=== PATIENT | female | born 1940 | race Caucasian/White ===

== ENCOUNTER 2016-11-02 11:29 | Inpatient (IN) | payer OTHER ==
[~2016-11-02] VITALS: Ht 162.6 cm; Wt 64.6 kg
[~2016-11-02 11:29] MED LIST: ADVAIR DISKUS 51 AER; ALPHAGAN P5 M1 OP; APLENZIN174 MG PO; ASPIRIN EC325 M1 PO; ASTAGRAF XL0.5 MG PO; ATI2I IV; ATROVENT H0.017 MG/1; ATRUD HHN; AUG500 PO; AZITHROMYCIN250 M1 PO; BACTRIM DS1 TAB PO; BACTRIM1 TAB PO; BG MC; CALCIUM; CALCIUM 600-D1 TAB PO; CALCIUM 600/VIT1 CA1 PO; CALCIUM 600600 M3 PO; CEFTIN500 MG PO; CEL20 PO; CEL250 PO; CELLCEPT250 MG PO; CENTURY PO; CLARITIN10 MG PO; COL100 PO; CRESEMBA186 MG PO; DELESTROGEN20 MG/ML IM; DESYREL50 MG PO; DEXPF IV; DORZOLAMIDE HYD10 ML OP; DUONEB3 ML NEB; ECO81 PO; ENFAMIL D-V400 IU/ML PO; ERGOCALCIFER50000 IU PO; FERROUS SULFAT325 M2 PO; FLA500 PO; FOLIC ACID1 MG PO; FUROSEMIDE20 MG PO; GABAPENTIN600 M1 PO; GOOD SENSE ASP325 MG PO; GOOD SENSE ASPI81 M3 PO; HALDOL; HALDOL DECA100 MG/ML PO; HALDOL DECAN50 MG/ML PO; HALOPERIDOL2 MG PO; HALOPERIDOL5 MG PO; HECORIA1 M1 PO; HEP5I SC; HYDROMORPHONE1 MG/ML IV; IPRATROPIUM BROM3 M2 HHN; K DUR; LAC PO; LANTUS SOLOS100 U/M1 SQ; LATANOPROST2.5 ML OU; LEVOFLOXACIN500 M1 PO; LOPRESSOR50 MG PO; MAC100 PO; MAGNESIUM; MAGNESIUM OXID400 MG PO; MAGNESIUM/PROTEIN PO; METHOCARBAMOL500 MG PO; METOPROLOL TART25 M1 PO; MG PLUS PROTEI133 MG PO; MIRALAX17 GM/Dose PO; MULTIVITAMIN1 SGL; MULTIVITAMIN1 SGL PO; NEURONTIN400 MG PO; NEURONTIN600 MG PO; NOR10T PO; NORCO1 TA1 PO; NOVI; NOVI SQ; NOVOLOG100 U/ML SC; NYSTATIN100000 U/M PO; OSCAL ULTRA 6001 TA1 PO; OSCD PO; OXYBUTYNIN CHLOR5 MG PO; OXYCODONE HYDROC5 M2 PO; OXYCONTIN20 MG PO; PHE25 PO; PRE20 PO; PRED FORTE1 ML OP; PREDNISONE1 MG PO; PREDNISONE2.5 MG PO; PREDNISONE20 MG PO; PRELONE15 MG/5 ML PO; PRI20 PO; PRILOSEC20 MG PO; PROAIR HFA0.09 MG/A1 INH; PROGRAF0.5 MG PO; PROGRAF1 MG PO; PROTONIX40 MG PO; PYR100 PO; QUALAQUIN324 MG PO; QUININE SULFAT324 MG PO; RESTORIL30 MG PO; ROC1I IM; STROVITE ONE1 TAB PO; TEMAZEPAM30 MG PO; THERAGRAN-M1 TA4 PO; TRA50 PO; TRAMADOL HCL50 MG PO; TRAVATAN Z5 ML OP; TRAZODONE50 M1 PO; TRIMETHOPRIM; TYL325 PO; VALCYTE450 MG PO; VFEND200 MG PO; VFEND50 MG PO; VITAMIN C500 M4 PO; VITAMIN C500 MG PO; VORICONAZOLE50 MG PO; ZES5 PO; ZITHROMAX250 MG PO; ZOC20 PO; ZOF4 PO; ZOS3PM IV; [UNRECOGNIZED DRUG - CODE] OP; [UNRECOGNIZED DRUG - CODE] PO; [UNRECOGNIZED DRUG - CODE] PO; [UNRECOGNIZED DRUG - OTHER]; [UNRECOGNIZED DRUG - OTHER] PO
--- NOTE | 2016-11-02 11:47 | NUR ---
DR TENA AT BEDSIDE FOR MSE
--- NOTE | 2016-11-02 11:57 | NUR ---
NORA AT BEDSIDE FOR BLOOD DRAW
--- NOTE | 2016-11-02 12:06 | NUR ---
PT MEDICATED WITH ZOFRAN 4MG SLOW IV PUSH AND PEPCID SLOW IV PUSH PER MD ORDERS. PT AND EDUCATED ON MEDICATION PRIOR TO ADMINISTRATION AND VERBALIZED UNDERSTANDING. PT REMAINS ON CUPOLA MELTING SUPERVISOR WITH CALL LIGHT IN REACH AND AT BEDSIDE.
--- NOTE | 2016-11-02 12:11 | NUR ---
X-RAY AT BEDSIDE
[2016-11-02 12:12] LABS: PLATELET COUNT 225 x10^3mcL (130-400); RED CELL DISTRIBUTION WIDTH 13.6 % (11.5-14.5)
[2016-11-02 12:13] LABS: BASOPHIL % 2.3 % (0-2)
--- NOTE | 2016-11-02 12:18 | NUR ---
PT HAS NORMAL SALINE INFUSING WIDE OPEN PER MD ORDERS. DUE TO PTS LOW BP. PT AND EDUCATED ON INFUSION AND VERBALIZED UNDERSTANDING. PT REMAINS ON COMPRESSOR ASSEMBLER WITH CALL LIGHT IN REACH.
[2016-11-02 12:26] LABS: CALCIUM 8.8 mg/dL (8.5-10.1); CARBON DIOXIDE 26.6 mmol/L (21-32); CHLORIDE SERUM 103 mmol/L (98-107); CREATININE SERUM 1.1 mg/dL (0.6-1.0); GLUCOSE SERUM 115 mg/dL (74-106); POTASSIUM SERUM 4.6 mmol/L (3.5-5.1); SODIUM SERUM 138 mmol/L (136-145)
[2016-11-02 12:30] LABS: ALBUMIN 2.8 g/dL (3.4-5.0); ALKALINE PHOSPHATASE 50 U/L (46-116); ALT/SGPT 23 U/L (14-59); AMYLASE 64 U/L (25-115); AST/SGOT 19 U/L (15-37); LIPASE 66 IU/L (73-393); TOTAL PROTEIN, SERUM 5.9 g/dL (6.4-8.2)
--- NOTE | 2016-11-02 12:30 | NUR ---
PT MEDICATED WITH FENTANYL 75MCG SLOW IV PUSH PER MD ORDERS. PT AND EDUCATED ON MEDICATION PRIOR TO ADMINISTRATION AND VERBALIZED UNDERSTANDING. PT REMAINS ON SALVAGE MECHANIC WITH CALL LIGHT IN REACH AND AT BEDSIDE.
--- NOTE | 2016-11-02 12:43 | NUR ---
PT RESTING ON GURNEY IN A POSITION OF COMFORT. PT REPORTS HER PAIN IS NOW A 0/10 AFTER BEING MEDICATED. PT REMAINS ON TIMBER GRADER WITH CALL LIGHT IN REACH AND AT BEDSIDE.
--- NOTE | 2016-11-02 14:09 | NUR ---
PT HAS ZOSYN INFUSING AT 100ML/HR PER MD ORDERS. PT EDUCATED ON MEDICATION PRIOR TO ADMINISTRATION AND VERBALIZED UNDERSTANDING. PT REMAINS ON EQUIPMENT MANAGER WITH CALL LIGHT IN REACH
[2016-11-02 14:10] LABS: microscopic required? NO
[2016-11-02 14:23] LABS: CHOLESTEROL/HDL RATIO 4.4
[2016-11-02 14:24] LABS: MAGNESIUM 1.8 mg/dL (1.8-2.4); PHOSPHOROUS 4.2 mg/dL (2.5-4.9)
--- NOTE | 2016-11-02 14:29 | NUR ---
REPORT GIVEN TO MEGA GREY TO ASSUME CARE OF PT.
[2016-11-02 14:30] LABS: T3 TOTAL 1.01 ng/mL
[2016-11-02 14:34] LABS: FREE THYROXINE INDEX 2.8 ug/dL (1.4-4.5); T4(THYROXINE) 7.7 ug/dL (4.7-13.3)
[2016-11-02 15:04] VITALS: BP 125/57
[2016-11-02 15:21] LABS: urine erythrocyte NEGATIVE (NEGATIVE)
--- NOTE | 2016-11-02 15:30 | NUR ---
PT ARRIVED HERE ON UNIT. ORIENT TO ROOM AND CALL SYSTEM. AT SIDE. AWAKD AND ALERT. TELE #15 SINUS RHYTHM. DENIES CHEST DISCOMFORT. RESP 18 EVEN. OXYGEN 2L NC IN PLACE. ABD SOFT. LUNCH MEAL SERVED ASSISTED WITH MEAL BY . IV PATENT LEFT HAND INFUSING NORMAL SALINE 50CC/HR. SCHEDULED FOR CT SCAN WITH IV/ORAL CONTRAST. HINDUISM RN ABLE TO INSERT #20 ANGIO CATH RFA SALINE LOCK FOR EXAM. PT TOLERATED WELL. DR GIANG IN TO SPEAK WITH PT AND . SCD IN ROOM.
--- NOTE | 2016-11-02 15:35 | NUR ---
RECEIVED PATIENT FROM ED VIA GUERNEY, PATIENT IN NO ACUTE DISTRESS, C/O PAIN TO ABD WILL MEDICATE ORDERED, NO SOB NOTED AT THIS TIME, ALERT AND ORIENTED AT BEDSIDE, ORIENTED PATIENT TO ROOM AND SURROUNDINGS, BED IN LOW POSITION, BED RAILS UP X 2, CALL LIGHT WITHIN REACH, WILL ENDORSE CARE TO MEGA GREY
--- NOTE | 2016-11-02 15:45 | NUR ---
PT C/O DISCOMFORT. MED BY GANGA GREY WITH MORPHINE SULFATE 2MG IVP ORDERED.
[2016-11-02 16:00] VITALS: BP 125/57
--- NOTE | 2016-11-02 16:00 | NUR ---
PT RESTING, EASILY AROUSED. REPORTS "I HAVE NO PAIN RIGHT NOW." REPORTS "HER SKIN IS VERY FRAGILE FROM ALL THE STERIODS SHE HAS BEEN ON. SKIN TEARS VERY EASILY." NOTED UPPER EXTREMITIES WITH DISCOLORATION BENEATH SKIN. PAPER TAPE USED REQUESTED.
[2016-11-02 16:01] LABS: AMPHETAMINE QUAL UR NONE DETECTED (NEG <=1000)
--- NOTE | 2016-11-02 17:00 | NUR ---
YOC=[id number]. NO RISS COVERAGE. NPO AT THIS TIME FOR CT ABD. CT CALLED. WILL GIVE PREP AT 1900 AND SCAN AT 2200. PT AND MADE AWARE. WILL CONTINUE TO MONITOR. PT DENIES PAIN AT THIS TIME.
[2016-11-02 17:46] VITALS: BP 94/54
--- NOTE | 2016-11-02 20:14 | NUR ---
Awake and verbally responsive. No resp.distress on 02 3lpm via n/c. Diminished breath sounds bilaterally. HOB elevated [address] abdomen. Taking oral contrast at this time. Normal sinus rhythm. at the bedside. Will cont. to monitor. Call light within reach.
[2016-11-02 21:00] VITALS: BP 115/55
[2016-11-02 21:52] VITALS: BP 105/62
--- NOTE | 2016-11-03 04:11 | NUR ---
Afebrile. No significant change in condition noted. Denies n/v. Medicated with morphine as ordered for c/o abd'l. pain with relief. No cough or congestion noted. Turned and repositioned q2h. Cont.on IV zosyn.
[2016-11-03 05:32] VITALS: BP 118/52
[2016-11-03 06:58] LABS: BASOPHIL % 0.2 % (0-2); PLATELET COUNT 280 x10^3mcL (130-400); RED CELL DISTRIBUTION WIDTH 14.3 % (11.5-14.5)
--- NOTE | 2016-11-03 07:50 | NUR ---
RECEIVED PT IN BED.ASSESSED AND DOCUMENTED. DENIES PAIN THIS TIME. SAFTEY PRECAUTIONS ON. WILL MONITOR.
[2016-11-03 08:09] LABS: CALCIUM 8.5 mg/dL (8.5-10.1); CARBON DIOXIDE 27.9 mmol/L (21-32); CHLORIDE SERUM 106 mmol/L (98-107); CREATININE SERUM 1.1 mg/dL (0.6-1.0); GLUCOSE SERUM 97 mg/dL (74-106); POTASSIUM SERUM 4.5 mmol/L (3.5-5.1); SODIUM SERUM 142 mmol/L (136-145)
--- NOTE | 2016-11-03 09:00 | NUR ---
PT RESTING IN BED COMFORTABLY. HAD LARGE SOFT BM. DENIES PAIN THIS TIME.
[2016-11-03] MEDS ORDERED: NOR10T PO (09:37)
[2016-11-03] MEDS ORDERED: COL100 PO (09:38)
[2016-11-03] MEDS ORDERED: LAC PO (09:38)
[2016-11-03] MEDS ORDERED: AUG500 PO (09:39)
[2016-11-03 10:21] VITALS: BP 134/68
[2016-11-03 14:45] VITALS: BP 150/73
[2016-11-03 17:05] VITALS: BP 113/68
--- NOTE | 2016-11-03 19:00 | NUR ---
PT RESTING IN BED COMFORTABLY. DENIES PAIN THIS TIME. GAVE REPORT TO NEXT SHIFT NURSE.
[2016-11-03 21:09] VITALS: BP 120/56
--- NOTE | 2016-11-03 22:26 | NUR ---
Awake and verbally responsive. No resp.distress noted. No cough or congestion noted. HOB kept elevated 30 degrees. Medicated as ordered for c/o back pain, morphine 2mg IV given with relief. Normal sinus rhythm. Will cont.to monitor. CAll light within reach. Refused SCD at this time.
--- NOTE | 2016-11-04 04:25 | NUR ---
Afebrile. Resting comfortably in bed. No SOB noted. No significant change in condition noted. Weight shift assistance provided. Incontinent, good pericare rendered. Cont.on IV zosyn. No cough or congestion noted. No cues of pain at this time. Safety mantained.
[2016-11-04 06:20] VITALS: BP 150/93
[2016-11-04 06:27] LABS: BASOPHIL % 0.3 % (0-2); PLATELET COUNT 189 x10^3mcL (130-400); RED CELL DISTRIBUTION WIDTH 13.5 % (11.5-14.5)
[2016-11-04 06:33] LABS: CALCIUM 8.9 mg/dL (8.5-10.1); CHLORIDE SERUM 107 mmol/L (98-107); POTASSIUM SERUM 4.2 mmol/L (3.5-5.1); SODIUM SERUM 141 mmol/L (136-145)
[2016-11-04 06:55] LABS: GLUCOSE SERUM 54 mg/dL (74-106)
--- NOTE | 2016-11-04 08:00 | NUR ---
AWAKE AND ALERT TO PERSON AND AND PLACE, FORGETFUL TO DATE AND TIME. REORIENTED. SPEECH CLEAR. TEMP 98.3. TELE #15 SINUS RHYTHM RATE 81. RESP 18 EVEN. BREATH SOUNDS DIMINISHED. NO COUGH OR SOB. PULSE OX 96% RA. ABD SOFT, BOWEL TONES PRESENT. EPISODE OF LOOSE STOOL THIS AM. PERICARE PROVIDED. SKIN INTEGRITY INTACT. NO SKIN BREAKDOWN NOTED. SKIN FRAGILE WITH PURPLISH COLOR UNDERTONES TO ARMS AND UPPER TORSO. REPORTS "IT IS FROM YEARS OF PREDNISONE USE." VOIDING QS. NO EDEMA. PULSES PRESENT. SCD IN PLACE. IV PATENT LEFT HAND INFUSING NORMAL SALINE 50CC/HR. SIDE RAILS UP X2. CALL LIGHT IN REACH.
--- NOTE | 2016-11-04 09:00 | NUR ---
DR JUAREZ AND MEDICAL TEAM IN ON ROUNDS. DISCUSSED PLAN OF CARE. FOR DISCHARGE HOME TODAY. PT VERBALIZED UNDERSTANDING.
[2016-11-04 11:01] VITALS: BP 111/63
[2016-11-04] MEDS ORDERED: PHARMASSURE FO0.4 MG (11:51)
[2016-11-04] MEDS ORDERED: PHARMASSURE VI500 MG (11:53)
[2016-11-04 11:54] VITALS: BP 140/81
--- NOTE | 2016-11-04 12:59 | NUR ---
ECHO IN PROGRESS. PT C/O GENERALIZED BODY ACHES HAI MID EPIGASTRIC REGION "01/26." PAGE TO DR CARR. TO ORDER TORADOL FOR PT.
--- NOTE | 2016-11-04 13:08 | NUR ---
PT C/O GENERALIZED BODY ACHES AND STOMACH PAIN. PT ANXIOUS, TEARFUL. DR CARR ORDERED TORADOL. REVIEWED MED WITH PT AND . VERBALIZED UNDERSTANDING. MED WITH TORADOL 15MG IVP ORDERED. CALL LIGHT IN REACH. REPOSITION FOR LUNCH MEAL AFTER ECHO COMPLETED.
--- NOTE | 2016-11-04 13:40 | NUR ---
PT REPORTS "FEELING BETTER 07/29." SMILING AND CHEERFUL.
[2016-11-04] MEDS ORDERED: PROTONIX40 MG PO (13:49)
[2016-11-04] MEDS ORDERED: IPRATROPIUM BROM3 M2 HHN (13:50)
[2016-11-04 14:04] VITALS: BP 152/69
--- NOTE | 2016-11-04 14:45 | NUR ---
REVIEWED DISCHARGE INSTRUCTIONS WITH PT AND . MEDS REVIEWED. VERBALIZED UNDERSTANDING OF MEDS, SCHEDULE AND ACTIONS. TO FOLLOWUP WITH DR CARABALLO NEXT WEEK. IV REMOVED CATH TIP INTACT. TELE REMOVED AND RETURNED TO TELE UNIT. PT ABLE TO GET UP TO BATHROOM WITH ASSIST, GAIT SLOW. HAD BM LOOSE AND VOIDED AT THIS TIME. PERICARE PROVIDED. ASSIST TO WHEELCHAIR. DC WITH BELONGINGS TO DISCHARGE NURSE OFFICE AT THIS TIME. NO GLASSES FOUND. BELONGINGS LIST ON ADMISSION STATES NO GLASSES. REPORTS "BROUGHT IN GLASSES 11-03-16. LAST SEEN LAST NIGHT BY BEFORE HE LEFT."
== END 2016-11-04 14:45 | disposition home or self-care (01) | DRG 177 ==
LOC: ED 11:29 → DU 13:33
PROVIDERS: Emergency Medicine; Family Medicine; ADMIT Family Medicine
DX: J69.0 Pneumonitis due to inhalation of food and vomit (principal); E43 Unspecified severe protein-calorie malnutrition; Z94.2 Lung transplant status; J44.1 Chronic obstructive pulmonary disease with (acute) exacerbation; E11.51 Type 2 diabetes mellitus with diabetic peripheral angiopathy without gangrene; E11.42 Type 2 diabetes mellitus with diabetic polyneuropathy; R10.13 Epigastric pain; R11.2 Nausea with vomiting, unspecified; M47.897 Other spondylosis, lumbosacral region; N32.81 Overactive bladder; G47.00 Insomnia, unspecified; I71.4 Abdominal aortic aneurysm, without rupture; E78.5 Hyperlipidemia, unspecified; F41.8 Other specified anxiety disorders; F10.21 Alcohol dependence, in remission; Z79.899 Other long term (current) drug therapy; Z87.891 Personal history of nicotine dependence; Z85.820 Personal history of malignant melanoma of skin; Z85.110 Personal history of malignant carcinoid tumor of bronchus and lung; Z86.718 Personal history of other venous thrombosis and embolism; Z95.828 Presence of other vascular implants and grafts; Z68.24 Body mass index [BMI] 24.0-24.9, adult
CPT/HCPCS: 80307; 83880; 84439; 94150; G0480; J1815; J1885; J2270; J2405; J2543; J3010; J3490; J7030; J7507; J7512; J7517; J7620; Q0092; Q9966; Q9967

== ENCOUNTER 2016-11-07 19:23 | Observation (INO) | payer OTHER ==
[~2016-11-07] VITALS: Ht 162.6 cm; Wt 54.5 kg
[~2016-11-07 19:23] MED LIST changes: +PHARMASSURE FO0.4 MG; +PHARMASSURE VI500 MG
[2016-11-07 20:33] LABS: BASOPHIL % 0.4 % (0-2); PLATELET COUNT 199 x10^3mcL (130-400); RED CELL DISTRIBUTION WIDTH 13.5 % (11.5-14.5)
[2016-11-07 20:58] LABS: CALCIUM 9.9 mg/dL (8.5-10.1); CARBON DIOXIDE 22.4 mmol/L (21-32); CHLORIDE SERUM 100 mmol/L (98-107); CREATININE SERUM 1.5 mg/dL (0.6-1.0); GLUCOSE SERUM 108 mg/dL (74-106); POTASSIUM SERUM 4.1 mmol/L (3.5-5.1); SODIUM SERUM 138 mmol/L (136-145)
[2016-11-07 21:03] LABS: ALBUMIN 3.6 g/dL (3.4-5.0); ALKALINE PHOSPHATASE 59 U/L (46-116); ALT/SGPT 20 U/L (14-59); AST/SGOT 13 U/L (15-37); BILIRUBIN TOTAL 0.4 mg/dL (0.20-1.00); TOTAL PROTEIN, SERUM 7.1 g/dL (6.4-8.2)
[2016-11-07 21:22] LABS: CK-MB 1.2 ng/mL (0-3.6)
[2016-11-08] VITALS (7 sets, daily range): BP systolic 114–136; BP diastolic 57–79
[2016-11-08 01:28] LABS: T3 TOTAL 1.15 ng/mL
[2016-11-08 01:35] LABS: MAGNESIUM 1.6 mg/dL (1.8-2.4); PHOSPHOROUS 2.8 mg/dL (2.5-4.9)
[2016-11-08 01:36] LABS: CHOLESTEROL/HDL RATIO 5.3
[2016-11-08 01:42] LABS: FREE T4 1.06 ng/dL (0.76-1.46); FREE THYROXINE INDEX 2.5 ug/dL (1.4-4.5); T4(THYROXINE) 7.6 ug/dL (4.7-13.3)
[2016-11-08 08:15] LABS: BASOPHIL % 0.1 % (0-2); PLATELET COUNT 158 x10^3mcL (130-400); RED CELL DISTRIBUTION WIDTH 13.8 % (11.5-14.5)
[2016-11-08 08:48] LABS: CALCIUM 9.3 mg/dL (8.5-10.1); CARBON DIOXIDE 16.8 mmol/L (21-32); CHLORIDE SERUM 99 mmol/L (98-107); CREATININE SERUM 1.8 mg/dL (0.6-1.0); GLUCOSE SERUM 279 mg/dL (74-106); POTASSIUM SERUM 4.5 mmol/L (3.5-5.1); SODIUM SERUM 135 mmol/L (136-145)
[2016-11-08 12:23] LABS: microscopic required? NO
[2016-11-08 12:32] LABS: urine erythrocyte NEGATIVE (NEGATIVE)
[2016-11-08 12:49] LABS: AMPHETAMINE QUAL UR NONE DETECTED (NEG <=1000)
[2016-11-08 17:07] LABS: CALCIUM 8.8 mg/dL (8.5-10.1); CARBON DIOXIDE 22.2 mmol/L (21-32); CHLORIDE SERUM 97 mmol/L (98-107); CREATININE SERUM 1.5 mg/dL (0.6-1.0); GLUCOSE SERUM 246 mg/dL (74-106); POTASSIUM SERUM 4.6 mmol/L (3.5-5.1); SODIUM SERUM 133 mmol/L (136-145)
[2016-11-09 05:58] VITALS: BP 140/67
[2016-11-09 06:58] LABS: CARBON DIOXIDE 19.4 mmol/L (21-32); CHLORIDE SERUM 105 mmol/L (98-107); CREATININE SERUM 1.4 mg/dL (0.6-1.0); GLUCOSE SERUM 209 mg/dL (74-106); SODIUM SERUM 138 mmol/L (136-145)
[2016-11-09 06:59] LABS: MAGNESIUM 1.8 mg/dL (1.8-2.4)
[2016-11-09 07:01] LABS: BASOPHIL % 0 % (0-2); PLATELET COUNT 148 x10^3mcL (130-400); RED CELL DISTRIBUTION WIDTH 14.5 % (11.5-14.5)
[2016-11-09 07:06] LABS: ALBUMIN 2.9 g/dL (3.4-5.0)
[2016-11-09 09:31] VITALS: BP 134/72
[2016-11-09] MEDS ORDERED: AUGMENTIN1 TA1 PO (11:38)
[2016-11-09] MEDS ORDERED: LAC PO (11:39)
[2016-11-09 12:19] VITALS: BP 134/72
== END 2016-11-09 13:55 | disposition hospice, home (50) | DRG 190 ==
LOC: ED 19:23 → DU 11-08 00:18 → MU 11-08 00:18 → DU 11-08 00:18 → MU 11-09 06:24
PROVIDERS: Emergency Medicine; Family Medicine; ADMIT Family Medicine
DX: J44.1 Chronic obstructive pulmonary disease with (acute) exacerbation (principal); J69.0 Pneumonitis due to inhalation of food and vomit; E43 Unspecified severe protein-calorie malnutrition; N17.0 Acute kidney failure with tubular necrosis; Z94.2 Lung transplant status; E11.51 Type 2 diabetes mellitus with diabetic peripheral angiopathy without gangrene; E11.42 Type 2 diabetes mellitus with diabetic polyneuropathy; E78.5 Hyperlipidemia, unspecified; I71.4 Abdominal aortic aneurysm, without rupture; G47.00 Insomnia, unspecified; M51.36 Other intervertebral disc degeneration, lumbar region; N32.81 Overactive bladder; F10.21 Alcohol dependence, in remission; F41.9 Anxiety disorder, unspecified; Z85.110 Personal history of malignant carcinoid tumor of bronchus and lung; Z85.820 Personal history of malignant melanoma of skin; Z87.891 Personal history of nicotine dependence; Z86.718 Personal history of other venous thrombosis and embolism; Z95.828 Presence of other vascular implants and grafts; Z68.20 Body mass index [BMI] 20.0-20.9, adult
CPT/HCPCS: 36600; 83880; 84439; 94150; G0378; J1815; J2270; J2543; J2920; J2930; J3010; J3475; J7030; J7507; J7512; J7517; J7613; J7620; J7626; J7633; J7644; Q0092

== ENCOUNTER 2017-02-10 12:00 | Inpatient (IN) | payer OTHER ==
[~2017-02-10] VITALS: Ht 162.6 cm; Wt 59.0 kg
[~2017-02-10 12:00] MED LIST changes: +AUGMENTIN1 TA1 PO
--- NOTE | 2017-02-10 13:44 | NUR ---
SEE ED ASSESSMENT FOR NOTES. COMFORT MEASURES IMPLEMENTED. CALL LIGHT W/IN REACH. WILL CONTINUE TO MONITOR.
[2017-02-10 14:28] LABS: BASOPHIL % 0.2 % (0-2); PLATELET COUNT 219 x10^3mcL (130-400); RED CELL DISTRIBUTION WIDTH 13.3 % (11.5-14.5)
--- NOTE | 2017-02-10 14:42 | NUR ---
PT TAKEN TO CT VIA ALLYRSON BY REGI, PT IN NO DISTRESS.
[2017-02-10 14:47] LABS: CALCIUM 9.3 mg/dL (8.5-10.1); CHLORIDE SERUM 102 mmol/L (98-107); CREATININE SERUM 1.5 mg/dL (0.6-1.0); GLUCOSE SERUM 100 mg/dL (74-106); SODIUM SERUM 136 mmol/L (136-145)
[2017-02-10 14:53] LABS: ALBUMIN 3.4 g/dL (3.4-5.0); LIPASE 65 IU/L (73-393)
--- NOTE | 2017-02-10 15:19 | NUR ---
PT SLEEPING ON GURNEY IN POSITION OF COMFORT. RESPS E/U. NO S/S OF DISTRESS NOTED. CALL LIGHT W/IN REACH. WILL CONTINUE TO MONITOR.
[2017-02-10 15:25] LABS: ALKALINE PHOSPHATASE 60 U/L (46-116); ALT/SGPT 23 U/L (14-59); AST/SGOT 14 U/L (15-37); BILIRUBIN TOTAL 0.34 mg/dL (0.20-1.00); TOTAL PROTEIN, SERUM 6.7 g/dL (6.4-8.2)
--- NOTE | 2017-02-10 16:18 | NUR ---
REPORT GIVEN TO MATILDA RAMIRES FOR CONTINUATION OF CARE PRIMARY RN.
--- NOTE | 2017-02-10 16:35 | NUR ---
MEDICATED ORDERED. PLEASE SEE EMR.
[2017-02-10 17:07] LABS: MAGNESIUM 1.8 mg/dL (1.8-2.4)
[2017-02-10 17:13] LABS: T3 TOTAL 1.05 ng/mL
[2017-02-10 17:18] LABS: CHOLESTEROL/HDL RATIO 4.8
--- NOTE | 2017-02-10 17:20 | NUR ---
RECEIVED PT FROM ER VIA GURNEY. ABLE TO AMBULATE FROM DOORWAY TO [id number] WITH NURSE ASSIST. MADE COMFORTABLE IN BED. CALL LIGHT IN REACH. AT BEDSIDE. TELE #1 PLACED SHOWS SINUS ARRHYTHMIA. RESP 20 SHALLOW, DIMINISHED. NO COUGH. PULSE OX 95% RA. ABD SOFT. NPO AT THIS TIME. IV PATENT LEFT HAND INFUSING NORMAL SALINE 100CC AT THIS TIME. IV FLAGYL IN PROGRESS. SKIN INTEGRITY PT WEARING DIAPER FROM HOME. SACRAL SKIN REDDISH IN COLOR BLANCHABLE. NO SKIN BREAKDOWN. PHOTO TAKEN BY ADMIT NURSE KEYLA RN. WILL CONTINUE TO MONITOR. DR CHRISTIANSON IN TO ASSESS PT AND SPEAK WITH TO OBTAIN HX.
--- NOTE | 2017-02-10 17:23 | NUR ---
echo cancellation rcaditya'diana.
--- NOTE | 2017-02-10 17:25 | NUR ---
PT TRANSFERED VIA GURNEY ACCOMPANIED BY NURSE AND EMT. SPORTS NUTRITIONIST ATTACHED. VSS. RESPS E/U. NO S/S OF DISTRESS NOTED. IV SITE PATENT. NO S/S OF INFILTRATION OR INFECTION NOTED. PT DENIES PAIN OR DISCOMFORT TO SITE.
[2017-02-10 17:37] VITALS: BP 146/79
[2017-02-10 17:57] LABS: FREE T4 1.02 ng/dL (0.76-1.46)
--- NOTE | 2017-02-10 18:04 | NUR ---
RECEIVED PT FROM ED VIA LEWIS. ORIENTED PT TO ROOM AND SURROUNDINGS. IV NOTED TO LEFT HAND PATENT AND INTACT. TELE 1 PLACED ON PT READING NSR SA. INSTRUCTED PT ON THE USE OF CALL LIGHT FOR ASSISTANCE. ENDORSED PT TO PRIMARY NURSE MEGA
--- NOTE | 2017-02-10 18:45 | NUR ---
PT GROANING. DENIED PAIN ON ADMISSION, NOW STATES "HAS PAIN IN THE STOMACH 10/26." REQUESTS PAIN PILL. MED WITH [facility] [employer] [facility] ORDERED. LOTTERIES AGENT AT BEDSIDE FOR CAROTID STUDY. CT SCAN HEAD TO FOLLOW AT 1999. IV CONTINUES PATENT SOLUTION CHANGED TO D5 1/2 NS AT 100CC/HR. INCONTINENT URINE. PERICARE PROVIDED. SIDE RAILS UP X2. CALL LIGHT IN REACH.
--- NOTE | 2017-02-10 19:35 | NUR ---
SEEN IN BED AWAKE, ALERT WITH PERIODS OF FORGETFULNESS. ABLE TO ANSWER QUESTION APPROPRIATELY. BREATHING EASY ON ROOM AIR. DIMINISHED LUNG SOUND. GEN BODY WEAKNESS. NOTED DARK DISCOLORATION TO BUE AND BLE. KEPT NPO X MEDS. IVF D5 1/2 NS AT 100ML/HR INFUSING WELL. SCD TO BLE INPLACED. PLAN OF CARE INFORMED AND REINSTRUCTED TO USE CALL LIGHT. ALL SIDERAILS UP X2. BED ALARM SET.
--- NOTE | 2017-02-10 20:30 | NUR ---
HAD HARD STOOL AND INCONTINENCE URINE NOTED, PERIANAL AREA CLEANED, NEW ABSORBANT PAD CHANGED. REPOSITIONED. AWAITING FOR CT HEAD TO BE DONE.
[2017-02-10 20:52] VITALS: BP 112/64
--- NOTE | 2017-02-10 21:12 | NUR ---
OFF FLOOR FOR CT HEAD. NO ANY DISTRESS NOTED. S/L TO LT HAND FLUSHED PATENT.
--- NOTE | 2017-02-10 21:30 | NUR ---
BACK FROM CT, NO ANY DISTRESS NOTED.
--- NOTE | 2017-02-11 00:54 | NUR ---
AWAKE IN BED GROANING, NO ANY DISTRESS NOTED, STS HAVING PAIN TO ABDOMEN 3/10, NORCO PO GIVEN. REPOSITIONED.
[2017-02-11 05:26] VITALS: BP 142/84
--- NOTE | 2017-02-11 05:50 | NUR ---
MOANING, GROANING STS HAVING PAIN TO ABDOMEN 6/10, MORPHINE 2MG IVP SLOWLY GIVEN. NO ADVERSE REACTION NOTED. KEPT NPO. FSBS =151 AT BEDSIDE. CONTINUED IVF D5 1/2NS AT 100ML/HR TO LT HAND IV SITE. HAD HARD BM X1 THROUGHOUT SHIFT. INCONTINENCE URINE AT TIMES. BLANCHABLE REDNESS TO SACRAL AREA, Z GUARD APPLIED. SCD TO BLE INPLACED.
--- NOTE | 2017-02-11 06:00 | NUR ---
RESTING QUIETLY AT THIS TIME. NO ANY DITRESS NOTED.
--- NOTE | 2017-02-11 08:04 | NUR ---
PT AWAKE AND ALERT TO PERSON, . SPEECH SOFT. FOLLOWS COMMANDS. TEMP 98.7. TELE #1 SINUS RHYTHM. RESP 18 EVEN. BREATH SOUNDS DIMINISHED. NO COUGH OR SOB. PULSE OX 95% RA. ABD SOFT, BOWEL TONES PRESENT. REMAINS NPO. VOIDING VIA BEDPAN. NO PITTING EDEMA. PULSES PRESENT. SCD IN PLACE. IV PATENT LEFT HAND INFUSING D5 1/2 NS 100CC/HR. SIDE RAILS UP X2. CALL LIGHT IN REACH.
[2017-02-11 08:21] LABS: BASOPHIL % 0.3 % (0-2); PLATELET COUNT 186 x10^3mcL (130-400); RED CELL DISTRIBUTION WIDTH 13.8 % (11.5-14.5)
[2017-02-11 08:35] LABS: CALCIUM 8.9 mg/dL (8.5-10.1); CARBON DIOXIDE 28.1 mmol/L (21-32); CHLORIDE SERUM 106 mmol/L (98-107); CREATININE SERUM 1.2 mg/dL (0.6-1.0); GLUCOSE SERUM 160 mg/dL (74-106); MAGNESIUM 1.6 mg/dL (1.8-2.4); PHOSPHOROUS 3.1 mg/dL (2.5-4.9); POTASSIUM SERUM 3.9 mmol/L (3.5-5.1); SODIUM SERUM 141 mmol/L (136-145)
--- NOTE | 2017-02-11 08:45 | NUR ---
DR JUAREZ AND MEDICAL TEAM IN ON ROUNDS. CHARGE NURSE AND PRIMARY NURSE PRESENT. PT TEARFUL. STATES "HAS PAIN." REVIEWED PAIN MANAGEMENT ELLIOT. NEW ORDER FOR DIALAUDID 0.5MG IVP FOR NOW DOSE TO BE GIVEN. PHARMACY TO VERIFY. UPDATED WITH MG LEVEL 1.6. MAG RIVERA ORDERED.
--- NOTE | 2017-02-11 09:07 | NUR ---
PT INCONTINENT LARGE AMOUNT OF URINE. BEDBATH GIVEN. LINEN CHANGED. AT BEDSIDE. REVIEWED MEDS. BROUGHT IN HOME MEDS PROGRAF AND CRESEMBA. TAKEN TO PHARMACY FOR EVAL. PT TEARFUL. MED WITH DIALAUDID 0.5MG IVP ORDERED. IV SITE PATENT. REMAINS NPO.
--- NOTE | 2017-02-11 09:30 | NUR ---
PT SLEEPING. HAS STEPPED OUT AT THIS TIME.
[2017-02-11 09:48] VITALS: BP 151/92
--- NOTE | 2017-02-11 10:40 | NUR ---
SPOKE WITH DR KHAN. UPDATED ON PT STATUS AND MEDICATIONS. REPORTS "SHE TAKES PREDNISONE 10MG DAILY. BROUGHT IN MEDS FROM HOME PROGRAF AND CRESEMBA. PHARMACY TO [facility].
--- NOTE | 2017-02-11 12:00 | NUR ---
YUN=[id number]. NO RISS COVERAGE. REPOSITIONED FOR COMFORT TO RIGHT SIDE WITH PILLOW SUPPORT. MED WITH DILAUDID 0.5MG IVP ORDERED. REMAINS NPO.
[2017-02-11 13:54] VITALS: BP 147/92
--- NOTE | 2017-02-11 15:59 | NUR ---
AT BEDSIDE. PT INCONTINENT URINE AND SMALL FORMED STOOL. PERICARE AND LINEN CHANGE. ZGUARD FOR SKIN CARE. REPOSITIONED TO LEFT SIDE WITH PILLOW SUPPORT. ABLE TO ASSIST WITH TURNING. PT TEARFUL STATES "STOMACH HURTS AGAIN 12/26" MED WITH DILAUDID 0.5MG IVP ORDERED.
--- NOTE | 2017-02-11 16:30 | NUR ---
CEI=[id number]. NO RISS COVERAGE PT IS NPO. REPORTS "PAIN BETTER 10." FAMILY AT BEDSIDE. STATES "I AM OK RIGHT NOW. I DO NOT WANT A PAIN PILL RIGHT NOW." CALL LIGHT IN REACH.
[2017-02-11 17:10] VITALS: BP 155/75
--- NOTE | 2017-02-11 18:05 | NUR ---
PT INCONTINENT URINE AND FORMED STOOL. PERICARE AND LINEN CHANGE. REPOSITION TO LEFT SIDE WITH PILLOW SUPPORT. HEELS FLOATED. MED WITH NORCO PO ORDERED. CALL LIGHT IN REACH.
[2017-02-11 21:11] VITALS: BP 148/64
--- NOTE | 2017-02-11 21:28 | NUR ---
GROANING, CRYING STS HAVING ABDOMINAL PAIN /. DILAUDID 0.5MG IVP GIVEN AT THIS TIME. NO ADVERSE REACTION NOTED. WILL CONTINUE TO MONITOR.
[2017-02-12 05:29] VITALS: BP 167/83
--- NOTE | 2017-02-12 06:01 | NUR ---
NO ANY DISTRESS THROUGHOUT SHIFT. DILAUDID 0.5MG IV GIVEN X2 FOR ABDOMINAL PAIN WITH GOOD RELIEF. HAD LARGE LOOSE BM X1,PERIANAL AREA CLEANED, ZGUARD APPLIED TO BLANCHABLE REDNESS TO SACRAL AREA. REPOSITIONED. IVF D51/2NS CONTINUED. ALL DUE MEDS GIVEN. KEPT NPO. SCD TO BLE INPLACED.
[2017-02-12 06:45] LABS: BASOPHIL % 0.1 % (0-2); PLATELET COUNT 186 x10^3mcL (130-400); RED CELL DISTRIBUTION WIDTH 13.8 % (11.5-14.5)
--- NOTE | 2017-02-12 07:20 | NUR ---
RECEIVED PATIENT AWAKE/ALERT IN BED MOANING BUT DENIES PAIN WHEN ASK, IV INTACT AND INFUSING WELL. INSTRUCT PATIENT TO CALL FOR ASSISTANCE WHEN GET UP. CALL LIGHT WITHIN REACH. POC EXPLAINED. CONT TO MONITOR.
--- NOTE | 2017-02-12 09:32 | NUR ---
PATIENT DENIES PAIN BUT MOANING VERY LOUD, DILAUDID 0.5MG IVP GIVEN. PATIENT REFUSED THE REST OF HER MEDS - LACTINEX AND COLACE. WILL TRY AGAIN LATER. CONT TO MONITOR.
[2017-02-12 09:44] LABS: CALCIUM 8.6 mg/dL (8.5-10.1); CARBON DIOXIDE 23.8 mmol/L (21-32); CHLORIDE SERUM 104 mmol/L (98-107); GLUCOSE SERUM 153 mg/dL (74-106); MAGNESIUM 1.9 mg/dL (1.8-2.4); PHOSPHOROUS 2.6 mg/dL (2.5-4.9); POTASSIUM SERUM 3.2 mmol/L (3.5-5.1); SODIUM SERUM 137 mmol/L (136-145)
[2017-02-12 09:52] VITALS: BP 155/83
--- NOTE | 2017-02-12 10:36 | NUR ---
PATIENT STILL MOANING AFTER MEDICATED FOR PAIN, FAMILY MEMBER AT BEDSIDE, ROCKY DTR WANT UPDATE; POC UPDATE. MEDICATE FOR NAUSEA WITH ZOFRAN 4 MG IVP, INCONT OF URINE AND STOOL; BRADLEY CARE PROVIDED. REPOSITION TO SIDE. CONT TO MONITOR.
--- NOTE | 2017-02-12 12:08 | NUR ---
PATIENT RESTING IN BED STILL MOANING, REMAIN AT BEDSIDE. HUMULIN R 3 UNITS SQ GIVEN FOR BS 192, NEEDS ANTICIPATED. CONT TO MONITOR.
--- NOTE | 2017-02-12 13:00 | NUR ---
PATIENT SIT UP IN BED STILL MOANING, AT BEDSIDE WITH PATIENT STATE PATIENT HAVE SCHMID; UNABLE TO RATE. KRIDER 20MEQ IV X 1 GIVEN FOR K3.2; NORCO 10/325MG PO GIVEN. PATIENT REFUSED TO EAT AT THIS TIME. SPILL OUT JELLO. TOOK PILLS WITH WATER. NEEDS ANTICIPATED.
--- NOTE | 2017-02-12 14:45 | NUR ---
PATIENT ASLEEP AT THIS TIME NO DISTRESS NOTED, ZOSYN IVPB GIVEN. REMAIN AT BEDSIDE. CONT TO MONITOR.
[2017-02-12 16:14] VITALS: BP 168/94
--- NOTE | 2017-02-12 16:20 | NUR ---
PATIENT AWAKE MOANING MEDICATE PATIENT FOR PAIN WITH DILAUDID 0.5MG IVP; REPOSITION FOR COMFORT. BS 144 NO COVERAGE NEEDED, CALL LIGHT WITHIN REACH.
--- NOTE | 2017-02-12 17:26 | NUR ---
PATIENT EYES CLOSED MOANING NO ACUTE DISTRESS NOTED, LACTINEX CRUSH GIVE W/ JELLO PATIENT SPIT OUT REFUSED, ORAL CARE PROVIDED. REPOSITON FOR COMFORT. CONT TO MONITOR.
--- NOTE | 2017-02-12 18:25 | NUR ---
PATIENT EYES CLOSED MOANING NO ACUTE DISTRESS NOTED, CONT TO MONITOR.
--- NOTE | 2017-02-12 19:30 | NUR ---
SEEN IN BED AAAOX3, GORANING. SPOUSE AT BEDSIDE. BREATHING EASY ON ROOM AIR. STS HAVING PAIN ALL OVER BODY. ON CLEAR LIQUID DIET. DENIES ABD PAIN OR NAUSEA. GEN BODY WEAKNESS. INCONTINENCE URINE AT TIMES. NOTED WITH DARK DISCOLORATION TO BODY. SCD TO BLE INPLACED. IVF D51/2NS AT 100 TO LT HAND IV SITE INFUSING WELL. PLAN OF CARE DISCUSSED. CALL LIGHT PLACED WITHIN EASY REACH, SIDERAILS UP X2.
--- NOTE | 2017-02-12 19:45 | NUR ---
DILAUDID 0.5MG IVP GIVEN FOR GENERALIZED BODY PAIN, NO ADVERSE REACTION NOTED. WILL CONTINUE TO MONITOR.
[2017-02-12 20:35] VITALS: BP 166/87
--- NOTE | 2017-02-13 01:24 | NUR ---
GRONAING, MOANING, STS HAVING BACK PAIN 11/26. DILAUDID 0.5MG IVP GIVEN. WILL CONTINUE TO MONITOR.
--- NOTE | 2017-02-13 02:00 | NUR ---
RESTING WITH EYES CLOSE.
--- NOTE | 2017-02-13 03:00 | NUR ---
HAD LARGE LOOSE BM GREENISH STOOL NOTED, PERICARE PROVIDED, Z GUARD APPLIED TO PERINEAL AND SACRAL AREA. REPOSITIONED. ON AIR MATTRESS. IVF D51/2NS INFUSING WELL.
--- NOTE | 2017-02-13 05:50 | NUR ---
NO ACUTE DISTRESS THROUGHOUT SHIFT. DILAUDID 0.5MG IV GIVEN X2 FOR GEN BODY PAIN WITH GOOD RELIEF. NOTED WITH PERIODS OF FORGETFULNESS, MOANING AND GROANING WHEN AWAKE. TURNED&REPOSITIONED Q 2HRS. ALL DUE MEDS GIVEN.
[2017-02-13 05:53] VITALS: BP 143/76
[2017-02-13 06:35] LABS: BASOPHIL % 0.5 % (0-2); PLATELET COUNT 196 x10^3mcL (130-400); RED CELL DISTRIBUTION WIDTH 13.7 % (11.5-14.5)
[2017-02-13 06:53] LABS: CARBON DIOXIDE 23.6 mmol/L (21-32); CHLORIDE SERUM 105 mmol/L (98-107); GLUCOSE SERUM 173 mg/dL (74-106); MAGNESIUM 1.6 mg/dL (1.8-2.4); PHOSPHOROUS 2.8 mg/dL (2.5-4.9); POTASSIUM SERUM 3.3 mmol/L (3.5-5.1); SODIUM SERUM 138 mmol/L (136-145)
--- NOTE | 2017-02-13 08:00 | NUR ---
RECEIVED PT IN BED. ASSESSED AND DOCUMENTED. DENIES PAIN THIS TIME. STABLE. SAFTEY PRECAUTIONS ON. WILL CONTINUE MONITOR.
--- NOTE | 2017-02-13 08:40 | NUR ---
AND RESIDENTS DID ROUNDS. EXPLAINED THE PLAN OF CARE AND ANSWERED ALL PT'S QUESTIONS.
[2017-02-13 09:39] VITALS: BP 154/89
--- NOTE | 2017-02-13 10:00 | NUR ---
INFORMED ABOUT K=3.3 AND MG=1.6. SHE SAID SHE WILL REPLACE.
--- NOTE | 2017-02-13 14:00 | NUR ---
PT CALLING FOR HER . JUST LEFT FOR HAVE LUNCH. TRY TO TALK TO PT HER WILL COME BACK SOON BUT PT YELLING AND TRYING TO GET OUT OF BED, CURSING EVERYBODY, VERY CONFUSED. INFORMED , SHE SAID SHE CANNOT GIVE ATIVAN. CALLED PT'S AND INFORMED SITUATIONS. WENT IN THE ROOM TRY TO TALK TO PT. WHEN GOT HERE PT IS CALM BUT STILL CONFUSED. SAFTEY PRECAUTIONS ON.
[2017-02-13 17:00] VITALS: BP 193/82
[2017-02-13 18:57] VITALS: BP 154/72
--- NOTE | 2017-02-13 19:00 | NUR ---
PT RESTING IN BED COMFORTABLY. DENIES PAIN THIS TIME. NO DISTRESS NOTED. GAVE REPORT TO NEXT SHIFT NURSE.
--- NOTE | 2017-02-13 19:20 | NUR ---
PATIENT RECEIVED AWAKE, ALERT, AND ORIENTED X 2. AT BEDSIDE. PATIENT C/O NAUSEA BUT DENIES VOMITING AT THIS TIME. PATIENT DENIES ABD PAIN AT THIS TIME. IV SITE TO LEFT HAND, PATENT AND INTACT. IV FLUID INFUSING PER DOCTOR'S ORDER. BED IN LOWEST POSITION. CALL LIGHT WITHIN REACH. WILL CONTINUE TO MONITOR.
--- NOTE | 2017-02-13 21:30 | NUR ---
IV TO LEFT HAND, DC'D. ELEVATED AND PROVIDED WARM COMPRESS. 22G REINSERTED TO RIGHT FOREARM, IV FLUID RESTARTED PER DOCTOR'S ORDER.
[2017-02-13 22:07] VITALS: BP 122/80
--- NOTE | 2017-02-14 05:20 | NUR ---
PATIENT RESTED IN INTERVALS THROUGHOUT THE NIGHT. NO C/O ABD PAIN THROUGHOUT THE NIGHT. ALL NEEDS MET. SAFETY AND COMFORT MEASURES MAINTAINED. BED IN LOWEST POSITION. CALL LIGHT WITHIN REACH. WILL CONTINUE TO MONITOR AND ENDORSE TO NEXT SHIFT NURSE.
[2017-02-14 06:12] VITALS: BP 128/69
[2017-02-14 06:17] LABS: BASOPHIL % 0.3 % (0-2); CALCIUM 9.1 mg/dL (8.5-10.1); CARBON DIOXIDE 23.7 mmol/L (21-32); CHLORIDE SERUM 100 mmol/L (98-107); GLUCOSE SERUM 128 mg/dL (74-106); PLATELET COUNT 223 x10^3mcL (130-400); POTASSIUM SERUM 3.7 mmol/L (3.5-5.1); RED CELL DISTRIBUTION WIDTH 13.7 % (11.5-14.5); SODIUM SERUM 137 mmol/L (136-145)
--- NOTE | 2017-02-14 08:00 | NUR ---
RECEIVED PT IN BED. ASSESSED AND DOCUMENTED. DENIES PAIN THIS TIME. STABLE. SAFTEY PRECAUTIONS ON. WILL MONITOR.
[2017-02-14 09:45] VITALS: BP 142/82
--- NOTE | 2017-02-14 11:35 | NUR ---
PT STATED NAUSEA AND SHE IS VOMITTING. ZOFRAN IV GIVEN ORDERED.WILL MONITOR. INFORMED .
--- NOTE | 2017-02-14 11:45 | NUR ---
PT'S CALLED, WENT IN THE ROOM. SAID PT STATED HER HEAD IS SPINNING, ASKED PT HOW DID SHE FEEL. SHE IS NOT ANSWERING QUESTIONS APPROPRIATELY, CONFUSED BUT VERY SLEEPY ALSO. REQUESTING TO TALK TO DOCTOR. CALLED AND INFORMED .HE CAME SAW THE PT AND TALK TO PT AND HER . PT SAID SHE STILL FEEL NAUSEA. ALSO CHECKED PT PERINEAL AREA AND SAW LABIA MAJORA IS SWOLLEN. ALSO INFORMED HIM ABOUT PT HAD 3 LOOSE STOOL TODAY. ALSO CAME CHECKED AND ASSESSED THE PT.
--- NOTE | 2017-02-14 13:00 | NUR ---
IV IS LEAKING AT RFA SITE AND ALSO STATED PAINFUL. PT IS VERY HARD STICK AFTER 5 TIME TRYING FINALLY GOT AT LFA. WILL GIVE PHENERGAN SAROJ.
--- NOTE | 2017-02-14 13:28 | NUR ---
PHENERGAN IV GIVEN ORDERED BECAUSE OF PT STILL STATED NAUSEA. REASSESSED PT 30MIN AFTER SHE SAID SHE FELT BETTER. NO MORE NAUSEA.
--- NOTE | 2017-02-14 14:36 | NUR ---
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 PSHx: Cholecystectomy (2014), Hernia Repair (2011) Labs: (02/14) BH, TH, LDL:115H, M.6L, H/H:12.7/39L Meds: Colace, D5NS, Dilauded, Humulin, Lactinex, Prednisone, Zofran. Diet:Full liquid PO Intake: (02/13) B:55%, L:20% D:55% (02/14)B:80% Ht: 64in, 5'4 Wt:130 , 58.96kg# BMI:22.3kg/m2 (normal weight) IBW: 120#,54.5kg %IBW: 108% UBW:135# from RD assessment (10/2015) Weight hx: (02/2015) 125# (10/2015)134.7# (10/2015) 132.7# (11/2015)135# (01/2016)121# (03/2016) 123# Age:76 y/o female Food Allergies:unable to obtain Skin:bruises on extremeties Walt:14 Edema:None GI: Last BM:02/14 Pt was admitted with acute abdominal pain likely secondary to diverticulitis. CT of abdomen showed acute sigmoid diverticulitis. CT of head showed mild atrophy without acute intracranial hemorrhage or edema. Findings appear similar to prior study,per H&P. Per progress note 02/13, Pt is pending consult with Dr. Salazar due to history of lung resection. Per doctor's note, pt was seen moaning when seen in rounds and pain medication was switched to Dilauded 1mg q3hr and diet was advanced to full liquids with pt on D5NS. Per bed huddle this morning, pt will discharge home today and continue with hospice. During visit, spoke to pt's hisband who wanted to talk to the doctor and did not want to answer any dietary questions because he was concerned because his was not feeling. Spoke to Dr. Griffin on the phone and he stated pt had vomited twice and was supposed to discharge today if she is able to tolerate her lunch. Problem with: N: Yes V: emesis x2 today D:No C:No Problems with: Chewing:No Swallowing:No Current appetite: unable to obtain Recent wt change: %wt change: Vitamin/Supplement use:unable to obtain Special diet at home:unable to obtain Physical activity:unable to obtain Education: unable to provide Estimated Nutritional Needs Based on actual body weight 59 kg Energy: 1475-1770kcal/d (25-30kcal/kg for geriatric maintenance) Protein: 59g/d (1g/kg for geriatric maintenance) Fluid:7085-9212 ml/d (1 ml/kcal) or per doctor Nutrition Diagnosis 1. Altered GI function related to diverticulitis and emesis as evidenced by pt with poor PO intake 55-80%[id number], ~63%. Intervention 1.Recommend continue with current full liquid diet. Monitor/Evaluate Goal: PO intake at least 75% of estimated needs Monitor: PO intake, Labs, GI function F/U in 2-3 days as high risk:02/16-02/17
--- NOTE | 2017-02-14 14:38 | NUR ---
Recommend continue with current full liquid diet.
--- NOTE | 2017-02-14 16:30 | NUR ---
CALLED SAID SHE IS SHIVERING, CHECKED PT TEMP 98.4F BUT PT FEEL ANXIOUS AND TALKING ABOUT HER MARRIAGE LIFE AND WHAT IS HAPPENING AT HOME. REQUESTING TO TALK TO TO DOCTOR. WENT TO TALK TO THEM. HE SAID HE WILL CHECK WHAT HE CAN ORDER FOR HER ANXIETY.
--- NOTE | 2017-02-14 17:00 | NUR ---
PT RESTING IN BED COMFORTABLY. DENIES PAIN THIS TIME. NO NAUSEA NOTED. NO ANXIETY NOTED. WILL CONTINUE MONITOR.
[2017-02-14 17:26] VITALS: BP 145/94
[2017-02-14] MEDS ORDERED: MYCP TOP (17:48)
[2017-02-14] MEDS ORDERED: BACTRIM DS1 TAB PO (17:51)
[2017-02-14] MEDS ORDERED: FLA500 PO (17:55)
--- NOTE | 2017-02-14 18:45 | NUR ---
WENT TO CHECK ON PT. FOUND PT SITTING IN THE CHAIR. SHE SAID SHE DID IT HERSELF AND SHE DIDNOT FALL. ASSISTED PT TO GOING BACK TO BED.PT REAMINS STABLE.
--- NOTE | 2017-02-14 19:15 | NUR ---
PT RESTING IN BED COMORTABLY. DENIES PAIN. REMAINS STABLE. PT WILL BE DISCHARGE TONIGHT. RESIDENT FINISHING UP DISCHARGE, INFORMED NIGHT NURSE AND GAVE REPORT.
[2017-02-14 20:01] VITALS: BP 145/94
--- NOTE | 2017-02-14 21:02 | NUR ---
PT DISCHARGED TO HOME. TRANSPORTATION PROVIDED BY . IV REMOVED, NO BLEEDING. PT STABLE. NO C/O PAIN. NO DISTRESS NOTED. DISCHARGED PACKET GIVEN.
== END 2017-02-14 21:00 | disposition hospice, home (50) | DRG 391 ==
LOC: ED 12:00 → MU 15:38 → DU 15:38 → MU 02-12 11:05
PROVIDERS: Emergency Medicine; Family Medicine; ADMIT Family Medicine
DX: K57.32 Diverticulitis of large intestine without perforation or abscess without bleeding (principal); N17.0 Acute kidney failure with tubular necrosis; Z94.2 Lung transplant status; D68.69 Other thrombophilia; E11.9 Type 2 diabetes mellitus without complications; E87.6 Hypokalemia; E83.42 Hypomagnesemia; E78.5 Hyperlipidemia, unspecified; N32.81 Overactive bladder; D64.9 Anemia, unspecified; M51.36 Other intervertebral disc degeneration, lumbar region; F41.9 Anxiety disorder, unspecified; D69.2 Other nonthrombocytopenic purpura; I71.4 Abdominal aortic aneurysm, without rupture; Z79.4 Long term (current) use of insulin; Z87.891 Personal history of nicotine dependence; Z85.820 Personal history of malignant melanoma of skin; Z86.718 Personal history of other venous thrombosis and embolism; Z68.22 Body mass index [BMI] 22.0-22.9, adult
CPT/HCPCS: 82962; 83880; 84439; J1170; J1720; J2270; J2405; J2543; J2550; J3475; J3480; J3490; J7030; J7042; J7506; J7507; J7517; Q0092